=== PATIENT | female | born 1990 | race Two or more races ===

== ENCOUNTER 2016-12-23 13:22 | Emergency (ER) | payer MEDICAID ==
[~2016-12-23] VITALS: Ht 165.1 cm; Wt 72.6 kg
[2016-12-23 13:31] VITALS: BP 130/84
[2016-12-23] MEDS ORDERED: NKM (13:35)
[2016-12-23] MEDS ORDERED: Bacitracin Oint UD TOPIC ONE (13:45)
[2016-12-23] MEDS ORDERED: Lidocaine 1% 10mg/ml/Epi 0.005mg/ml 30ml vial INJ ONE (13:45)
[2016-12-23] MEDS: TdaP Vaccine 0.5ml Syr IM ONE ×2 (13:53→13:55)
--- NOTE | 2016-12-23 14:46 | Emergency Room Report ---
History of Present Illness General Chief Complaint: Laceration Source: Patient (YANI GRIFFIN) Present Illness HPI The patient is a 26-year-old female presenting with a laceration to the left side of the face which occurred today while hanging a mirror. The patient states that the mirror broke and a shard struck the left side of the face. The patient noticed immediate bleeding. The patient denies any pain at this time. The patient is unsure of last tetanus shot. The patient denies any other injury and denies any other symptoms including dizziness, blurred vision, cough or level of consciousness, numbness or tingling (YANI GRIFFIN.Sola) Allergies: Coded Allergies: No Known Allergies (Unverified , 12/23/16) Patient History Past Medical History: see triage record Pertinent Family History: none Last Menstrual Period: on period Reviewed Nursing Documentation: PMH: Agreed, PSxH: Agreed (YANI GRIFFIN) Nursing Documentation-PMH Past Medical History: No Stated History (YANI GRIFFIN) Review of Systems All Other Systems: negative except mentioned in HPI (YANI GRIFFIN) Physical Exam Vital Signs Date Time Temp Pulse Resp B/P Pulse Ox O2 Delivery O2 Flow Rate FiO2 12/23/16 13:31 99.0 81 14 130/84 99 Room Air Sp02 EP Interpretation: reviewed, normal General Appearance: no apparent distress, alert, GCS 15, non-toxic Head: normocephalic, atraumatic Eyes: bilateral eye PERRL, bilateral eye normal inspection ENT: hearing grossly normal, normal pharynx, no angioedema, normal voice Neck: full range of motion, supple/symm/no masses Musculoskeletal: back normal, gait/station normal, normal range of motion, non- tender Neurologic: alert, oriented x3, responsive, motor strength/tone normal, sensory intact, speech normal Psychiatric: judgement/insight normal, memory normal, mood/affect normal, no suicidal/homicidal ideation Skin: no rash, normal turgor, laceration - 3cm linear laceration to L lateral face. Anterior to L ear. Lymphatic: no adenopathy (YANI GRIFFIN) Procedures Laceration/Wound Repair Laceration/Wound Repair : Consent: Verbal Wound Location: face Wound's Depth, Shape: superficial Wound Length (cm): 3 Wound Explored: clean Irrigated w/ Saline (ccs): 200 Anesthesia: 1% Lidocaine, Lidocaine w/ Epi Volume Anesthetic (ccs): 2 Wound Debrided: minimal Wound Repaired With: sutures Suture Size/Type: 6:0, proline Number of Sutures: 3 Layer Closure?: No Sterile Dressing Applied?: Yes Splint Applied?: No Patient Tolerated: Well Complications: None (YANI GRIFFIN) Medical Decision Making PA Attestation Dr. Kevin is my supervising physician. Patient management was discussed with my supervising physician (YANI GRIFFIN) Diagnostic Impression: Primary Impression: Laceration of face ER Course The patient is a 26-year-old female presenting with a laceration to the left side of the face Ddx considered include but not limited to fracture, tendon/ligament injury, avulsion, nerve damage PE: vitals WNL. NAD 3cm linear laceration to L lateral face. Anterior to L ear. Minimal active bleeding. TTP. SILT. The wound was irrigated with normal saline and cleaned with betadine. A 27g needle was used to administer 2mL of lidocaine w. epi for local anaesthesia. 3 sutures were placed with 6-0 Nylon. The wound was well approximated and the patient tolerated the procedure well. The wound was then cleaned and bacitracin was applied. The patient has declined tetanus shot. The patient will be discharged home and is given ER precautions. Patient will keep the wound clean and dry. The patient is given laceration instructions (YANI GRIFFIN P.A.) Last Vital Signs Date Time Temp Pulse Resp B/P Pulse Ox O2 Delivery O2 Flow Rate FiO2 12/23/16 13:31 99.0 81 14 130/84 99 Room Air Status: improved (YANI GRIFFIN P.AAbraham) Last Vital Signs Date Time Temp Pulse Resp B/P Pulse Ox O2 Delivery O2 Flow Rate FiO2 12/23/16 14:49 99.0 78 14 128/80 99 Room Air (David Kevin M.D.) Disposition: HOME, SELF-CARE Condition: Improved Patient Instructions: Laceration Care, Adult, Facial Laceration Additional Instructions: I discussed my findings with the patient. All questions and concerns have been answered. Treatment and medication compliance have been addressed. I advised the patient that they need to follow up with PMD in 5 days for wound check and suture removal. If you are unable to see PMD, return to the ED in 5 days. Return to ED if pain remains or worsens, you notice discharge from the wound, the wound continues to bleed, the suture/s fall out, you notice a fever or chills, or for any reason. Patient is advised to keep the wound clean and dry. Patient verbalized understanding of discharge instructions. YANI GRIFFIN Dec 23, 2016 14:46 David Kevin M.D. Dec 25, 2016 04:25
[2016-12-23 14:49] VITALS: BP 128/80
== END 2016-12-23 14:52 | disposition home or self-care (01) ==
LOC: EMR 14:00
DX: S01.81XA Laceration without foreign body of other part of head, initial encounter (principal); W25.XXXA Contact with sharp glass, initial encounter; Y92.9 Unspecified place or not applicable
CPT/HCPCS: 12013; 99284; Z7502; 90471; 90715